=== PATIENT | female | born 1990 | race Caucasian/White ===

== ENCOUNTER 2022-02-11 12:50 | Emergency (ER) | payer OTHER, SELFPAY ==
[2022-02-11 13:03] VITALS: BP 136/70; PULSE 94; RESP 20; TEMP 37.3; O2SAT 100
--- NOTE | 2022-02-11 14:57 | ED.GENADULT ---
HPI - General Adult General Chief complaint: Dental/Oral Stated complaint: Dizzy, sick to stomach Source: patient Mode of arrival: ambulatory Limitations: no limitations History of Present Illness HPI narrative: Patient presents for evaluation of right lower dental pain. Symptoms of been present on and off for 2 years. Symptoms have been present at this time for a week. Pain is 9/10, throbbing and without modifying factors. She reports fever, chills, nausea, lightheadedness. She believes all the symptoms are related to her abdominal pain. Her mother gave her some amoxicillin yesterday. She is asking for prescription for that. No additional complaints or concerns. Related Data Allergies Allergy/AdvReac Type Severity Reaction Status Date / Time No Known Allergies Allergy Verified 02/11/22 13:28 Review of Systems Review of Systems: CONSTITUTIONAL: Reports fever and chills. Denies sweats. EYES: Denies visual changes, redness, or discharge. ENT:Reports right lower dental pain. Denies rhinorrhea, congestion, sore throat, or otalgia. CARDIOVASCULAR: Denies chest pain, palpitations, or edema. RESPIRATORY: Denies cough or dyspnea. GASTROINTESTINAL: Reports nausea. Denies abdominal pain, vomiting, or diarrhea. GENITOURINARY: Denies dysuria or hematuria. SKIN: Denies rash or itching. MUSCULOSKELETAL: Denies back pain, joint pain, or myalgia. NEUROLOGIC: Reports lightheadedness. Denies headache, numbness, dizziness, or weakness. PSYCHIATRIC: Denies anxiety or depression. PMFSH Past Medical History Medical History (Updated 02/11/22 @ 15:00 by CHAGO Thurston, ) No pertinent past medical history Surgical History Surgical History No pertinent past surgical history Family History Family History Mother Family history non-contributory Social History Social History Living arrangements: with family Sexual Orientation (if Verbalized by the Patient): Straight or Heterosexual Spiritual care concerns: No Exam Narrative: GENERAL: Well-appearing, well-nourished, and in no acute distress. HEAD: Normocephalic, atraumatic. EYES: PERRLA and EOMI. ENT: Nares clear, no rhinorrhea or epistaxis. Mucous membranes moist. Right lower molar is partially impacted. There are several fractured teeth. Overall poor dentition. No visible or palpable dental abscess. Oropharynx without tonsillar hypertrophy exudate or other lesions. Bilateral TMs pearly guidry nonbulging NECK: Supple. No adenopathy or masses. No carotid bruits or JVD CHEST: Clear to auscultation. No respiratory distress. No wheezes rales or rhonchi HEART: Regular rate and rhythm. No murmur heard. Normal peripheral pulses. ABDOMEN: Soft, nontender, nondistended, normal active bowel sounds. EXTREMITIES: Normal range of motion. No edema. SKIN: Warm, dry, no rash. NEURO: No focal deficits. Alert and oriented x3. PSYCH: Normal mood and affect. Course Course Level of Care: Express Care Visit Vital Signs Vital signs: Vital Signs Temperature 37.3 C 02/11/22 13:03 Pulse Rate 94 02/11/22 13:03 Respiratory Rate 20 02/11/22 13:03 Blood Pressure 136/70 02/11/22 13:03 Pulse Oximetry 100 02/11/22 13:03 Oxygen Delivery Room Air 02/11/22 13:03 Temperature 37.3 C 02/11/22 13:03 Pulse Rate 94 02/11/22 13:03 Respiratory Rate 20 02/11/22 13:03 Blood Pressure 136/70 02/11/22 13:03 Pulse Oximetry 100 02/11/22 13:03 Oxygen Delivery Room Air 02/11/22 13:03 Medical Decision Making Vital Signs Vital Signs: Vital Signs Temperature 37.3 C 02/11/22 13:03 Pulse Rate 94 02/11/22 13:03 Respiratory Rate 20 02/11/22 13:03 Blood Pressure 136/70 02/11/22 13:03 Pulse Oximetry 100 02/11/22 13:03 Oxygen Delivery Room Air 02/11/22 13:03
== END 2022-02-11 15:05 | disposition home or self-care (01) ==
PROVIDERS: Emergency Provider Nurse Practitioner
DX: K01.1 Impacted teeth (principal)
CPT/HCPCS: 99213; G0463

== ENCOUNTER 2022-03-16 13:24 | Emergency (ER) | payer OTHER, SELFPAY ==
[2022-03-16 13:29] VITALS: BP 140/77; PULSE 100; RESP 20; TEMP 37.1; O2SAT 99
--- NOTE | 2022-03-16 14:03 | ED.GENADULT ---
HPI - General Adult General Chief complaint: Dental/Oral Stated complaint: Toothache Time Seen by Provider: 03/16/22 14:10 Related Data Home Medications Medication Instructions Recorded Confirmed No Home Medications 03/16/22 03/16/22 Allergies Allergy/AdvReac Type Severity Reaction Status Date / Time No Known Allergies Allergy Verified 03/16/22 14:14 [facility] Past Medical History Medical History (Updated 03/17/22 @ 00:00 by Helga Smart) No pertinent past medical history Surgical History Surgical History No pertinent past surgical history Family History Family History Mother Family history non-contributory Social History Social History Sexual Orientation (if Verbalized by the Patient): Straight or Heterosexual Spiritual care concerns: No Course Vital Signs Vital signs: Vital Signs Temperature 98.7 F 03/16/22 13:29 Pulse Rate 100 03/16/22 13:29 Respiratory Rate 20 03/16/22 13:29 Blood Pressure 140/77 03/16/22 13:29 Pulse Oximetry 99 03/16/22 13:29 Oxygen Delivery Room Air 03/16/22 13:29 Temperature 98.7 F 03/16/22 13:29 Pulse Rate 100 03/16/22 13:29 Respiratory Rate 20 03/16/22 13:29 Blood Pressure 140/77 03/16/22 13:29 Pulse Oximetry 99 03/16/22 13:29 Oxygen Delivery Room Air 03/16/22 13:29 Medical Decision Making Vital Signs Vital Signs: Vital Signs Temperature 98.7 F 03/16/22 13:29 Pulse Rate 100 03/16/22 13:29 Respiratory Rate 20 03/16/22 13:29 Blood Pressure 140/77 03/16/22 13:29 Pulse Oximetry 99 03/16/22 13:29 Oxygen Delivery Room Air 03/16/22 13:29 Temperature 98.7 F 03/16/22 13:29 Pulse Rate 100 03/16/22 13:29 Respiratory Rate 20 03/16/22 13:29 Blood Pressure 140/77 03/16/22 13:29 Pulse Oximetry 99 03/16/22 13:29 Oxygen Delivery Room Air 03/16/22 13:29 Discharge Plan Discharge Clinical Impression: Dental infection Patient Disposition: Home, Self-Care Condition: Stable Instructions: Antibiotic Form Additional Instructions: Finish the entire course of antibiotics & use the mouthwash. After every time you eat be sure to use salt water gargles. Apply ice to face to help with pain. Dental problems can lead to other problems, so this is important to follow up with a dental provider. To solve the problem, You need to follow up with a dental provider, a list has been given to you. Please follow up with your dentist as soon as possible. Take Ibuprofen as prescribed for pain and to decrease swelling- take this with food Follow up with a Primary Care Provider (PCP) about medical needs. A PCP can help keep you healthy by preventive medicine and screening. Return to Urgent care or go to the ER for New or worsening symptoms. Patient Language: Kazakh Prescriptions: New clindamycin HCl 150 mg capsule 150 mg PO Q6H 7 Days Qty: 28 0RF ibuprofen 600 mg tablet 600 mg PO TID PRN (Reason: pain) Qty: 30 0RF No Action No Home Medications Follow-up/Referrals: PHYSICIAN NOT ON STAFF,NONSTAFF [Primary Care Provider] - Time of Disposition: 14:15
--- NOTE | 2022-03-16 14:10 | ED.DENTAL ---
HPI - Dental/Oral General Chief complaint: Dental/Oral Stated complaint: Toothache Time Seen by Provider: 03/16/22 14:10 Source: patient, RN notes reviewed and old records reviewed Mode of arrival: ambulatory Limitations: no limitations History of Present Illness HPI Narrative: 31-year-old female presents to the [facility] with complaints of right upper and lower dental pain. States that she finished antibiotics about 2 weeks ago. Has a dental appointment coming up for an evaluation. Very poor dentition with swelling of the surrounding gingiva of the upper molars. Decayed teeth throughout. MD Complaint: tooth pain Related Data Home Medications Medication Instructions Recorded Confirmed No Home Medications 03/16/22 03/16/22 Allergies Allergy/AdvReac Type Severity Reaction Status Date / Time No Known Allergies Allergy Verified 03/16/22 14:14 Review of Systems Review of Systems: All systems reviewed & are unremarkable except as noted in HPI and below Constitutional: Constitutional: Reports no additional constitutional complaints, Denies chills and Denies fever(s) Eyes: Eyes: Reports no additional eye complaints ENT: Reports as per HPI Comments: Dental pain Cardiovascular: Cardiovascular: Reports no additional cardiovascular complaints, Denies chest pain and Denies dyspnea Respiratory: Respiratory: Reports no additional respiratory complaints, Denies cough and Denies dyspnea Musculoskeletal: Musculoskeletal: Reports no additional musculoskeletal complaints Integumentary/Breasts: Skin/Breast: Reports system reviewed and no additional complaints, except as docu Neurologic: Reports system reviewed and no additional complaints, except as documented Psychiatric: Psychiatric: Reports no additional psychiatric complaints Allergic/Immunologic: Allergic/Immunologic: Reports no additional allergic/immunologic complaints [facility] Past Medical History Medical History No pertinent past medical history Surgical History Surgical History No pertinent past surgical history Family History Family History Mother Family history non-contributory Social History Social History Sexual Orientation (if Verbalized by the Patient): Straight or Heterosexual Spiritual care concerns: No Comments At the time of my signature, I reviewed and agree with the nursing past medical, surgical, social, and family history. There is no relevant family history pertinent to the patient complaint. Exam Const: General: healthy appearing, no acute distress and alert Nutritional Appearance: well nourished Orientation/consciousness: patient oriented x3 Limitations: no limitations HENMT: Head: normal to inspection Ears: external ears normal, TM's normal bilaterally and EAC's normal General nose exam: Normal external nose present and Normal nasal mucous membranes and turbinates present Face and sinus: normal facial exam Mouth: Yes Normal oral and palatal mucosa present Teeth and gingiva: poor dentition Throat: posterior oropharynx normal, tonsils normal and uvula midline Other: Erythema noted to right upper gingiva with minor swelling Eyes: Conjunctivae: conjunctivae normal Pupils: Equal, round and reactive pupils present Neck: Neck: normal visual inspection, no lymphadenopathy and no meningeal signs Chest: Chest palpation & inspection: normal inspection of the chest Resp: Effort & Inspection: normal respiratory effort Auscultation: clear to auscultation bilaterally Cardio: Rate: regular rate Rhythm: regular rhythm : General: Yes no CVA tenderness Back/Spine/Pelvis: Back: no CVA tenderness Skin: General skin exam: normal color Rashes: no rashes Wounds: no wounds Neuro: General: patient oriented x3,
== END 2022-03-16 14:15 | disposition home or self-care (01) ==
PROVIDERS: Emergency Provider Nurse Practitioner
DX: K04.7 Periapical abscess without sinus (principal); I10 Essential (primary) hypertension; Z86.16 Personal history of COVID-19
CPT/HCPCS: 99213; G0463

== ENCOUNTER 2022-06-07 16:46 | Emergency (ER) | payer OTHER, SELFPAY ==
[2022-06-07 16:56] VITALS: BP 135/65; PULSE 85; RESP 20; TEMP 36.7; O2SAT 100
--- NOTE | 2022-06-07 18:12 | ED.FEMALEGU ---
HPI - Female Genitourinary General Chief complaint: Abdominal Pain Stated complaint: abdo pain frequent urination Time Seen by Provider: 06/07/22 18:12 Source: patient and RN notes reviewed Mode of arrival: ambulatory Limitations: no limitations History of Present Illness HPI Narrative: 32-year-old female presenting for complaint of lower abdominal cramping, liquid stools for about 2 days. LMP 5 weeks ago. She denies vaginal complaints or concern for STD. Denies hematochezia or melena, vomiting, flank pain, fever, chills, cough or shortness of breath. Endorses concern for and would like a test. Related Data Home Medications Medication Instructions Recorded Confirmed lisinopril 10 mg tablet 10 mg PO DAILY 06/07/22 06/07/22 Allergies Allergy/AdvReac Type Severity Reaction Status Date / Time No Known Allergies Allergy Verified 06/07/22 17:15 Review of Systems Review of Systems: CONSTITUTIONAL: Denies body aches, fever, chills, or sweats. CARDIOVASCULAR: Denies chest pain, palpitations, or edema. RESPIRATORY: Denies cough or dyspnea. GASTROINTESTINAL: Denies abdominal pain, nausea, vomiting, hematochezia GENITOURINARY: Denies dysuria, frequency, urgency, hematuria, flank pain SKIN: Denies rash, itching, or wounds. MUSCULOSKELETAL: Denies back pain or myalgia. PMFSH Comments At time of signature, I have reviewed and agree with nursing past medical, surgical, social and family history unless otherwise noted. Please see nursing chart for further information. There is no relevant family history pertinent to the presenting complaint Exam Narrative: GENERAL: Well-appearing ENT: Mucous membranes pink and moist. CHEST: No respiratory distress. Clear to auscultation. HEART: Regular rate and rhythm. ABDOMEN: Soft, nontender, nondistended, normal active bowel sounds. No CVA tenderness SKIN: Warm, dry, no rash. PSYCH: flat affect. Course Course Emergency Course: Patient is aware of diagnosis, understands and agrees to treatment plan. Anticipatory guidance given. Patient agrees to follow-up as directed and is aware of reasons to seek care at the emergency department. Portions of this record may have been created with voice recognition software Level of Care: Express Care Visit Vital Signs Vital signs: Vital Signs Temperature 98.1 F 06/07/22 16:56 Pulse Rate 85 06/07/22 16:56 Respiratory Rate 20 11/17/22 16:56 Blood Pressure 135/65 06/07/22 16:56 Pulse Oximetry 100 06/07/22 16:56 Oxygen Delivery Room Air 06/07/22 16:56 Temperature 98.1 F 06/07/22 16:56 Pulse Rate 85 06/07/22 16:56 Respiratory Rate 20 06/07/22 16:56 Blood Pressure 135/65 06/07/22 16:56 Pulse Oximetry 100 06/07/22 16:56 Oxygen Delivery Room Air 06/07/22 16:56 Reviewed MDM - Female Genitourinary MDM Narrative Medical decision making narrative: urine preg neg. urine dip reviewed with pt. Reports frequent episodes of watery stool. Advised supportive measures and signs/symptoms to go to the ER. Pt is appropriate for outpt treatment and f/u. Differential Diagnosis Differential diagnosis: Likely urinary tract infection, vaginitis and other (gastroenteritis, dehydration, food poisoning) Lab Data Labs: UCG Bedside Result Negative Reference Range: Negative Influenza A Screen Negative Reference Range: Negative Influenza B Screen Negative Reference Range: Negative Urine Glucose Negative Reference Range: Negative Urine Bilirubin Negative Reference Range: Negative Urine Ketone Negative Reference Range: Negati
== END 2022-06-07 18:45 | disposition home or self-care (01) ==
PROVIDERS: Emergency Provider Nurse Practitioner Family
DX: R19.7 Diarrhea, unspecified (principal); I10 Essential (primary) hypertension
CPT/HCPCS: 81003; 81025; 87804; 99213; G0463

== ENCOUNTER 2022-06-19 17:46 | Emergency (ER) | payer OTHER, SELFPAY ==
[2022-06-19 18:14] VITALS: BP 131/64; PULSE 72; RESP 20; TEMP 36.7; O2SAT 100
--- NOTE | 2022-06-19 18:50 | ED.URI ---
HPI - URI/Sore Throat General Chief Complaint: Upper Respiratory Infection Stated Complaint: Nausea Time Seen by Provider: 06/19/22 19:15 Source: patient and RN notes reviewed Mode of arrival: ambulatory Limitations: no limitations History of Present Illness HPI Narrative: 32-year-old female presents concern for cough, chills, fever, nausea this started last night. Reports her children have similar symptoms. Reports she works at [employer] elicited complaint: cough Related Data Home Medications Medication Instructions Recorded Confirmed lisinopril 10 mg tablet 10 mg PO DAILY 06/07/22 06/19/22 Allergies Allergy/AdvReac Type Severity Reaction Status Date / Time No Known Allergies Allergy Verified 06/19/22 18:50 Review of Systems Review of Systems: CONSTITUTIONAL: Reports malaise, chills, sweats, low-grade fever. EYES: Denies visual changes, redness, or discharge. ENT: Reports rhinorrhea, congestion, and sore throat. CARDIOVASCULAR: Denies chest pain, palpitations, or edema. RESPIRATORY: Reports cough. Denies dyspnea. GASTROINTESTINAL: Denies abdominal pain, nausea, vomiting, diarrhea SKIN: Denies rash or itching. MUSCULOSKELETAL: Reports myalgia. NEUROLOGIC: Denies headache. All systems reviewed & are unremarkable except as noted in HPI and below PMFSH Comments At time of signature, agree with nursing past medical, surgical, social and family history. There is no relevant family history pertinent to the presenting complaint Exam Narrative: GENERAL: Well-appearing, well-nourished, and in no acute distress. HEAD: Normocephalic EYES: PERRLA, conjunctivae clear ENT: Nares clear, turbinates edematous and erythematous, clear discharge. Mucous membranes moist. TM pearly guidry with dull light reflex bilaterally; no tragal tenderness. Oropharynx not erythematous without lesions. Tonsils not enlarged and without exudate, no drooling, no hoarseness, no trismus, uvula midline. NECK: Supple. No lymphadenopathy CHEST: Clear to auscultation, breath sounds equal. No wheezing, rhonchi, rales, or stridor. No respiratory distress, speaks in full sentences. HEART: Regular rate and rhythm. No murmur heard. SKIN: Warm, dry, no rash. NEURO: Alert and oriented x3. PSYCH: Normal mood and affect Course Course Emergency Course: Patient is aware of diagnosis, understands and agrees to treatment plan. Anticipatory guidance given. Patient agrees to follow-up as directed and is aware of reasons to seek care at the emergency department. Portions of this record may have been created with voice recognition software Level of Care: Express Care Visit Vital Signs Vital signs: Vital Signs Temperature 98.1 F 06/19/22 18:14 Pulse Rate 72 06/19/22 18:14 Respiratory Rate 20 06/19/22 18:14 Blood Pressure 131/64 06/19/22 18:14 Pulse Oximetry 100 06/19/22 18:14 Oxygen Delivery Room Air 06/19/22 18:14 Temperature 98.1 F 06/19/22 18:14 Pulse Rate 72 06/19/22 18:14 Respiratory Rate 20 06/19/22 18:14 Blood Pressure 131/64 06/19/22 18:14 Pulse Oximetry 100 06/19/22 18:14 Oxygen Delivery Room Air 06/19/22 18:14 Reviewed. MDM - URI/Sore Throat MDM Narrative Medical decision making narrative: Differential diagnosis considered: Amador virus, strep pharyngitis, allergic rhinitis, upper respiratory tract infection, sinusitis, rhinosinusitis, nasopharyngitis. viral pharyngitis, otitis media, otitis externa, pneumonia, bronchitis, viral cough syndrome, viral syndrome, and influenza. Exam findings show no acute concerns or changes; patient is non-toxic appearing and is in no distress. Patient is appropriate for outpatient treatment and follow-up. Lab Data Attestation: I reviewed the patient's lab results. Critical Care Time Critical Care Time Critical Care Time: No Discharge Plan Discharge Clinical Impression: Upper respiratory infection Patient Disposition: Home, Self-Care Condition: Stable
== END 2022-06-19 19:20 | disposition home or self-care (01) ==
PROVIDERS: Emergency Provider Nurse Practitioner
DX: J06.9 Acute upper respiratory infection, unspecified (principal)
CPT/HCPCS: 81025; 87804; 99213; G0463

== ENCOUNTER 2022-07-11 17:06 | Emergency (ER) | payer OTHER, SELFPAY ==
[2022-07-11 17:16] VITALS: BP 125/40; PULSE 91; RESP 16; TEMP 36.7; O2SAT 100
--- NOTE | 2022-07-11 17:19 | ED.ABDPAIN ---
HPI - Abdominal Pain General Chief Complaint: Abdominal Pain Stated Complaint: Abdominal Pain Time Seen by Provider: 07/11/22 17:10 Source: patient and RN notes reviewed Mode of arrival: ambulatory Limitations: no limitations History of Present Illness HPI narrative: 32-year-old female presented for complaint of generalized abdominal cramping with nausea, onset last night while at work. She endorses LMP 04/2022. She has taken several negative at-home test. She denies vaginal discharge, urinary complaints, diarrhea, constipation, fevers or chills. Related Data Home Medications Medication Instructions Recorded Confirmed lisinopril 10 mg tablet 10 mg PO DAILY 06/07/22 07/11/22 Allergies Allergy/AdvReac Type Severity Reaction Status Date / Time No Known Allergies Allergy Verified 07/11/22 17:33 Review of Systems Review of Systems: CONSTITUTIONAL: Denies body aches, fever, chills ENT: Denies rhinorrhea, congestion CARDIOVASCULAR: Denies chest pain, palpitations, or edema. RESPIRATORY: Denies cough or dyspnea. GASTROINTESTINAL: Endorses abdominal pain, nausea, Denies vomiting, diarrhea. GENITOURINARY: Denies dysuria, hematuria, or CVA tenderness. SKIN: Denies rash, itching, or wounds. MUSCULOSKELETAL: Denies back pain, joint pain, or myalgia. NEUROLOGIC: Denies headache, numbness, tingling, or weakness. All systems reviewed & are unremarkable except as noted in HPI and below PMFSH Comments At time of signature, I have reviewed and agree with nursing past medical, surgical, social and family history unless otherwise noted. Please see nursing chart for further information. There is no relevant family history pertinent to the presenting complaint Exam Narrative: GENERAL: Well-appearing, and in no acute distress. EYES: EOMI. Conjunctivae normal. ENT: Mucous membranes pink and moist. CHEST: Clear to auscultation. HEART: Regular rate and rhythm. ABDOMEN: abd soft, large nondistended, normal active bowel sounds. Nontender abdomen. No guarding, rebound tenderness, asymmetry EXTREMITIES: Normal range of motion. No edema. SKIN: Warm, dry, no rash. Capillary refill normal. Normal skin turgor. NEURO: No focal deficits. Alert and oriented x3. PSYCH: Flat affect. Slow to respond, difficult to engage Course Course Emergency Course: Patient is aware of diagnosis, understands and agrees to treatment plan. Anticipatory guidance given. Patient agrees to follow-up as directed and is aware of reasons to seek care at the emergency department. Portions of this record may have been created with voice recognition software Level of Care: Express Care Visit Vital Signs Vital signs: Vital Signs Temperature 98.1 F 07/11/22 17:16 Pulse Rate 91 07/11/22 17:16 Respiratory Rate 16 07/11/22 17:16 Blood Pressure 125/40 L 07/11/22 17:16 Pulse Oximetry 100 07/11/22 17:16 Oxygen Delivery Room Air 07/11/22 17:16 Temperature 98.1 F 07/11/22 17:16 Pulse Rate 91 07/11/22 17:16 Respiratory Rate 16 07/11/22 17:16 Blood Pressure 125/40 L 07/11/22 17:16 Pulse Oximetry 100 07/11/22 17:16 Oxygen Delivery Room Air 07/11/22 17:16 MDM - Abdominal Pain MDM Narrative Medical decision making narrative: Exam unremarkable. Urine will be sent for culture. Advised supportive measures and signs/symptoms to go to the ER. Pt is appropriate for outpt treatment and f/u. Differential Diagnosis Differential diagnosis: Likely abdominal pain, constipation, diverticulitis, small bowel obstruction and other (uti, ) Lab Data Labs: UCG Bedside Result Negative Reference Range: Negative Urine Glucose Negative Reference Range: Negative Urine Bilirubin Negative Reference Range: Negative Urine Ke
== END 2022-07-11 19:00 | disposition home or self-care (01) ==
PROVIDERS: Emergency Provider Nurse Practitioner Family
DX: R10.84 Generalized abdominal pain (principal); I10 Essential (primary) hypertension
CPT/HCPCS: 81003; 81025; 87086; 87088; 99213; G0463

== ENCOUNTER 2022-08-09 18:37 | Emergency (ER) | payer OTHER, SELFPAY ==
[2022-08-09 18:42] VITALS: BP 154/79; PULSE 104; RESP 20; TEMP 36.6; O2SAT 98
--- NOTE | 2022-08-09 18:57 | ED.URI ---
HPI - URI/Sore Throat General Chief Complaint: Upper Respiratory Infection Stated Complaint: cold and congestion Time Seen by Provider: 08/09/22 18:57 Source: patient and RN notes reviewed History of Present Illness HPI Narrative: patient is a 32-year-old female who presents to urgent care with complaints of chest congestion, cough, sore throat headache. Patient states her symptoms started on Saturday with a low-grade fever. Patient has been afebrile since then. Patient has been taking DayQuil and NyQuil and denies any ill exposures. No other acute complaints. No acute distress noted. Patient aware of plan of care. Some parts of this dictation were generated by voice recognition software and may contain typographical and/or grammatical inaccuracies. Related Data Home Medications Medication Instructions Recorded Confirmed amlodipine 10 mg tablet 10 mg DAILY 08/09/22 08/09/22 citalopram 10 mg tablet 10 mg DAILY 08/09/22 08/09/22 Allergies Allergy/AdvReac Type Severity Reaction Status Date / Time orange Allergy Hives Verified 08/09/22 18:52 Review of Systems Review of Systems: CONSTITUTIONAL: Denies fever, chills, or sweats. EYES: Denies visual changes, redness, or discharge. ENT: Reports postnasal drainage, congestion, sore throat CARDIOVASCULAR: Denies chest pain, palpitations, or edema. RESPIRATORY: reports chest congestion cough GASTROINTESTINAL: Denies abdominal pain, nausea, vomiting, or diarrhea. GENITOURINARY: Denies dysuria or hematuria. SKIN: Denies rash or itching. MUSCULOSKELETAL: Denies back pain, joint pain, or myalgia. NEUROLOGIC: reports of headaches All other systems reviewed are negative, except as documented in HPI. [facility] Past Medical History Medical History No pertinent past medical history Surgical History Surgical History No pertinent past surgical history Family History Family History Mother Family history non-contributory Social History Social History Sexual Orientation (if Verbalized by the Patient): Straight or Heterosexual Spiritual care concerns: No Comments At the time of my signature, I reviewed and agree with the nursing past medical, surgical, social, and family history. There is no relevant family history pertinent to the patient complaint. Exam Narrative: GENERAL: This is a well-nourished, well-developed patient, in no apparent distress. very poor hygiene HEAD: normocephalic, atraumatic. EYES: PERRL. Sclera clear/white. Vision is grossly intact. EARS: External ears normal, auditory canals clear and without drainage, TMs normal without perforation. Hearing grossly intact. NOSE: External nose normal with no obvious nasal discharge, nares without redness, no rhinorrhea. THROAT: Mucous membranes moist,. moderate postnasal drainage with mild bilateral tonsillar edema without exudate or ulceration NECK: Neck supple CARDIOVASCULAR: Regular rate and rhythm without murmurs, gallops, or rubs. RESPIRATORY: Clear to auscultation. Breath sounds equal bilaterally. No wheezes, rales, or rhonchi. SKIN: warm, intact with no suspicious lesions or rash, good texture and turgor. NEURO: awake, alert, and oriented to person, place and time. There were no obvious focal neurologic abnormalities. EXTREMITIES: No clubbing, cyanosis, or edema. Course Course Level of Care: Express Care Visit Vital Signs Vital signs: Vital Signs Temperature 97.8 F 08/09/22 18:42 Pulse Rate 104 H 08/09/22 18:42 Respiratory Rate 08/09/22 18:42 Blood Pressure 154/79 H 08/09/22 18:42 Pulse Oximetry 98 08/09/22 18:42 Oxygen Delivery Room Air 08/09/22 18:42 Temperature 97.8 F 08/09/22 18:42 Pulse Rate 104 H 08/09/22 18:42 Respiratory Rate
== END 2022-08-09 19:34 | disposition home or self-care (01) ==
PROVIDERS: Emergency Provider Nurse Practitioner Family
DX: J02.0 Streptococcal pharyngitis (principal)
CPT/HCPCS: 87880; 99213; G0463